=== PATIENT | male | born 1945 | race Two or more races ===

== ENCOUNTER 2020-09-08 18:08 | Emergency (ER) | payer OTHER ==
[~2020-09-08] VITALS: Ht 165.1 cm; Wt 76.7 kg
[~2020-09-08 18:08] MED LIST: ECO81 PO; WEL75 PO; ZES10 PO
[2020-09-08 18:39] VITALS: Ht 165.1 cm; Wt 76.7 kg
[2020-09-08] MEDS ORDERED: VOLTAREN100 GM TOP (21:09)
[2020-09-08] MEDS ORDERED: TYLENOL ARTHRI650 MG PO (21:09)
[2020-09-08 21:21] VITALS: BP 151/88
== END 2020-09-08 21:21 | disposition home or self-care (01) ==
LOC: ED 18:08
DX: M77.8 Other enthesopathies, not elsewhere classified (principal); I10 Essential (primary) hypertension; M19.90 Unspecified osteoarthritis, unspecified site; Z88.2 Allergy status to sulfonamides
CPT/HCPCS: J3301